=== PATIENT | male | born 1960 | race Caucasian/White ===

== ENCOUNTER 2023-02-11 17:45 | Inpatient (IN) | payer MEDICARE, MEDICAID ==
[2023-02-11] MEDS ORDERED: Aspirin 81 MG Tab.Chew ONE (17:53)
[2023-02-11] MEDS ORDERED: Aspirin 81 MG Tab.Chew PO ONE (17:53)
[2023-02-11] MEDS ORDERED: Acetaminophen 650 MG Supp RECTAL ONE (17:54)
[2023-02-11] MEDS ORDERED: Sodium Chloride 0.9% 1,000 ML IV ONE ×2 (17:55→22:54)
[2023-02-11] MEDS ORDERED: VANCOmycin 2 GM/400 ML 2 GM in Premix Bag 1 BAG IV ONE (18:20)
[2023-02-11 18:22] LABS: BASOPHILS ABSOLUTE AUTO 0.02 10^3/uL (0.00-0.10); BASOPHILS PERCENT AUTO 0.1 % (0.0-1.0); EOSINOPHILS ABSOLUTE AUTO 0.02 10^3/uL (0.10-0.30); EOSINOPHILS PERCENT AUTO 0.1 % (1.0-3.0); HEMATOCRIT 46.1 % (40.0-52.0); HEMOGLOBIN 15.5 g/dL (13.0-17.0); IMMATURE GRAN ABSOLUTE AUTO 0.07 10^3/uL (0.00-0.50); IMMATURE GRAN PERCENT AUTO 0.3 % (0.0-5.0); LYMPHOCYTES ABSOLUTE AUTO 0.38 10^3/uL (1.00-4.00); LYMPHOCYTES PERCENT AUTO 1.9 % (20.0-40.0); MEAN CORPUSCULAR HEMOGLOBIN 31.8 pg (27.0-31.0); MEAN CORPUSCULAR HGB CONC 33.6 g/dL (32.0-36.0); MEAN CORPUSCULAR VOLUME 94.7 fL (82.0-92.0); MEAN PLATELET VOLUME 9.3 fL (7.4-10.4); MONOCYTES ABSOLUTE AUTO 1.14 10^3/uL (0.10-0.80); MONOCYTES PERCENT AUTO 5.7 % (2.0-8.0); NEUTROPHILS ABSOLUTE AUTO 18.54 10^3/uL (2.50-7.00); NEUTROPHILS PERCENT AUTO 91.9 % (50.0-70.0); PLATELET COUNT,PLT 196 10^3/uL (150-400); RED BLOOD CELL COUNT 4.87 10^6/uL (4.50-6.00); RED CELL DISTRIBUTION WIDTH 12.7 % (11.5-14.5); WHITE BLOOD CELL COUNT,WBC 20.17 10^3/uL (5.00-10.00)
[2023-02-11] MEDS ORDERED: cefTRIAXone 2 GM Vial IVPUSH ONE (18:22)
[2023-02-11] MEDS ORDERED: Nitroglycerin 0.4 MG Tab.SL ONE (18:25)
[2023-02-11] MEDS ORDERED: Nitroglycerin 0.4 MG Tab.SL SL ONE (18:26)
[2023-02-11 18:39] LABS: ALANINE AMINOTRANSFERASE,ALT 43 U/L (14-63); ALBUMIN 3.68 g/dL (3.40-5.00); ALKALINE PHOSPHATASE 60 U/L (46-116); ANION GAP 16.5 mmol/L (5-15); ASPARTATE AMNIOTRANSFERASE,AST 40 U/L (15-37); BILIRUBIN TOTAL 0.6 mg/dL (0.2-1.0); BLOOD UREA NITROGEN,BUN 17 mg/dL (7-18); CALCIUM 8.6 mg/dL (8.7-10.3); CARBON DIOXIDE,CO2 24.7 mmol/L (21.0-32.0); CHLORIDE,CL 99 mmol/L (98-107); CREATININE 1.04 mg/dL (0.51-1.17); GLUCOSE RANDOM 138 mg/dL (70-140); POTASSIUM,K 4.2 mmol/L (3.5-5.1); PROTEIN TOTAL,TP 7.4 g/dL (6.4-8.2); SODIUM,NA 136 mmol/L (136-145)
[2023-02-11 18:41] LABS: ESTIMATED GFR 80 mL/min (>=60)
[2023-02-11 18:44] LABS: B-TYPE NATRIURETIC PEPTIDE,BNP 20 pg/mL (0-100)
[2023-02-11 18:46] LABS: APPEARANCE,URINE SLIGHTLY CLOUDY (CLEAR); BILIRUBIN,URINE NEGATIVE (NEGATIVE); COLOR,URINE YELLOW (YELLOW); GLUCOSE,URINE 500 mg/dL (NEGATIVE); KETONES,URINE NEGATIVE (NEGATIVE); LEUKOCYTE ESTERASE,URINE NEGATIVE (NEGATIVE); NITRITE,URINE NEGATIVE (NEGATIVE); OCCULT BLOOD,URINE TRACE-INTACT (NEGATIVE); PH,URINE 5.5 (5.0-9.0); PROTEIN,URINE NEGATIVE (NEGATIVE); UROBILINOGEN,URINE 0.2 E.U./dL (0.2-1.0)
[2023-02-11 18:49] LABS: BACTERIA,URINE RARE /HPF (NONE TO FEW); EPITHELIAL CELLS,URINE RARE /LPF; WBC,URINE 0-5 /HPF (0-5)
[2023-02-11] MEDS ORDERED: 50% Dextrose in Water 50 ML Syringe IVPUSH PRN (21:43)
[2023-02-11] MEDS ORDERED: Glucagon,Human Recombinant 1 MG Vial IM PRN (21:43)
[2023-02-11] MEDS: Acetaminophen 650 MG Supp RECTAL PRN (22:59)
[2023-02-12 01:15] LABS: INFLUENZA A NAA NEGATIVE (NEGATIVE); INFLUENZA B NAA NEGATIVE (NEGATIVE); RESPIRATORY SYNCYTIAL VIR NAA NEGATIVE (NEGATIVE)
[2023-02-12 01:16] LABS: CORONAVIRUS COVID-19 NAA NEGATIVE (NEGATIVE)
[2023-02-12] MEDS ORDERED: Sodium Chloride 0.9% 100 ML IV SCH (02:30)
[2023-02-12] MEDS: Acetaminophen 650 MG Supp RECTAL PRN (03:07)
[2023-02-12 07:29] LABS: BASOPHILS ABSOLUTE AUTO 0.03 10^3/uL (0.00-0.10); BASOPHILS PERCENT AUTO 0.2 % (0.0-1.0); HEMATOCRIT 46.3 % (40.0-52.0); HEMOGLOBIN 14.9 g/dL (13.0-17.0); IMMATURE GRAN ABSOLUTE AUTO 0.05 10^3/uL (0.00-0.50); IMMATURE GRAN PERCENT AUTO 0.3 % (0.0-5.0); LYMPHOCYTES ABSOLUTE AUTO 0.53 10^3/uL (1.00-4.00); LYMPHOCYTES PERCENT AUTO 3.5 % (20.0-40.0); MEAN CORPUSCULAR HEMOGLOBIN 31.4 pg (27.0-31.0); MEAN CORPUSCULAR HGB CONC 32.2 g/dL (32.0-36.0); MEAN CORPUSCULAR VOLUME 97.5 fL (82.0-92.0); MEAN PLATELET VOLUME 9.3 fL (7.4-10.4); MONOCYTES ABSOLUTE AUTO 0.54 10^3/uL (0.10-0.80); MONOCYTES PERCENT AUTO 3.6 % (2.0-8.0); NEUTROPHILS ABSOLUTE AUTO 13.82 10^3/uL (2.50-7.00); NEUTROPHILS PERCENT AUTO 92.4 % (50.0-70.0); PLATELET COUNT,PLT 193 10^3/uL (150-400); RED BLOOD CELL COUNT 4.75 10^6/uL (4.50-6.00); WHITE BLOOD CELL COUNT,WBC 14.97 10^3/uL (5.00-10.00)
[2023-02-12 07:46] LABS: ALBUMIN 3.11 g/dL (3.40-5.00); ANION GAP 12.7 mmol/L (5-15); BILIRUBIN TOTAL 0.5 mg/dL (0.2-1.0); CALCIUM 8.5 mg/dL (8.7-10.3); CARBON DIOXIDE,CO2 28.7 mmol/L (21.0-32.0); CREATININE 1.06 mg/dL (0.51-1.17); EST CRCL DRUG DOSING (CG) 77.27 mL/min; POTASSIUM,K 4.4 mmol/L (3.5-5.1)
[2023-02-12] MEDS: Insulin Lispro 100 Unit/ML 3 ML KwikPen SUBCUT SCH ×3 (08:15→17:46)
[2023-02-12] MEDS: Aspirin 81 MG Tab.EC PO SCH (08:33)
[2023-02-12] MEDS: Magnesium Oxide 500 MG Tab PO SCH ×2 (08:33→21:36)
[2023-02-12] MEDS: Gabapentin 300 MG Cap PO SCH ×3 (08:33→21:36)
[2023-02-12] MEDS: DULoxetine 30 MG Cap PO SCH ×2 (08:33→21:37)
[2023-02-12] MEDS: Multivitamins with Minerals/Iron/Folic Acid/Lycopene Tab PO SCH (08:33)
[2023-02-12] MEDS: Cholecalciferol (Vitamin D3) 25 MCG Tab PO SCH (08:34)
[2023-02-12] MEDS: Enoxaparin 40 MG/0.4 ML Syringe SUBCUT SCH (08:34)
[2023-02-12] MEDS: Omeprazole 20 MG Cap.CR PO SCH (08:34)
[2023-02-12] MEDS: Potassium Chloride 20 MEQ Tab.ER PO SCH (08:34)
[2023-02-12] MEDS: VANCOmycin 1 GM/200 ML 1 GM in Premix Bag 1 BAG IV SCH ×2 (08:51→21:21)
[2023-02-12] MEDS ORDERED: BENZTROPINE 1 MG PO SCH (09:00)
[2023-02-12] MEDS: Furosemide 40 MG Tab PO SCH ×2 (10:00→17:21)
[2023-02-12] MEDS: Acetaminophen 325 MG Tab PO PRN ×3 (10:11→21:35)
[2023-02-12] MEDS: Nystatin Topical Powder 15 GM Bottle TOP SCH ×2 (10:12→21:43)
[2023-02-12] MEDS: cefTRIAXone 2 GM Vial IVPUSH SCH (17:11)
[2023-02-12] MEDS: ARIPiprazole 5 MG Tab PO SCH (21:38)
[2023-02-13] MEDS: Acetaminophen 325 MG Tab PO PRN (02:17)
[2023-02-13] MEDS: Insulin Lispro 100 Unit/ML 3 ML KwikPen SUBCUT SCH ×3 (08:17→17:42)
[2023-02-13] MEDS: DULoxetine 30 MG Cap PO SCH ×2 (08:26→20:47)
[2023-02-13] MEDS: Cholecalciferol (Vitamin D3) 25 MCG Tab PO SCH (08:26)
[2023-02-13] MEDS: Gabapentin 300 MG Cap PO SCH ×3 (08:26→20:47)
[2023-02-13] MEDS: Aspirin 81 MG Tab.EC PO SCH (08:26)
[2023-02-13] MEDS: Multivitamins with Minerals/Iron/Folic Acid/Lycopene Tab PO SCH (08:26)
[2023-02-13] MEDS: Potassium Chloride 20 MEQ Tab.ER PO SCH (08:27)
[2023-02-13] MEDS: Omeprazole 20 MG Cap.CR PO SCH (08:27)
[2023-02-13] MEDS: Enoxaparin 40 MG/0.4 ML Syringe SUBCUT SCH (08:27)
[2023-02-13] MEDS: Magnesium Oxide 500 MG Tab PO SCH ×2 (08:27→20:47)
[2023-02-13] MEDS: Furosemide 40 MG Tab PO SCH ×2 (08:27→17:10)
[2023-02-13] MEDS: VANCOmycin 1 GM/200 ML 1 GM in Premix Bag 1 BAG IV SCH (08:56)
[2023-02-13] MEDS: Nystatin Topical Powder 15 GM Bottle TOP SCH ×2 (09:38→21:55)
[2023-02-13 11:32] LABS: BASOPHILS ABSOLUTE AUTO 0.01 10^3/uL (0.00-0.10); BASOPHILS PERCENT AUTO 0.2 % (0.0-1.0); EOSINOPHILS ABSOLUTE AUTO 0.19 10^3/uL (0.10-0.30); EOSINOPHILS PERCENT AUTO 3.2 % (1.0-3.0); HEMATOCRIT 43.7 % (40.0-52.0); IMMATURE GRAN ABSOLUTE AUTO 0.01 10^3/uL (0.00-0.50); IMMATURE GRAN PERCENT AUTO 0.2 % (0.0-5.0); LYMPHOCYTES ABSOLUTE AUTO 0.89 10^3/uL (1.00-4.00); LYMPHOCYTES PERCENT AUTO 14.8 % (20.0-40.0); MEAN CORPUSCULAR VOLUME 96.7 fL (82.0-92.0); MEAN PLATELET VOLUME 9.6 fL (7.4-10.4); MONOCYTES ABSOLUTE AUTO 0.55 10^3/uL (0.10-0.80); MONOCYTES PERCENT AUTO 9.2 % (2.0-8.0); NEUTROPHILS ABSOLUTE AUTO 4.36 10^3/uL (2.50-7.00); NEUTROPHILS PERCENT AUTO 72.4 % (50.0-70.0); PLATELET COUNT,PLT 162 10^3/uL (150-400); RED BLOOD CELL COUNT 4.52 10^6/uL (4.50-6.00); WHITE BLOOD CELL COUNT,WBC 6.01 10^3/uL (5.00-10.00)
[2023-02-13 11:48] LABS: ANION GAP 11.6 mmol/L (5-15); CALCIUM 8.7 mg/dL (8.7-10.3); CARBON DIOXIDE,CO2 26.4 mmol/L (21.0-32.0); CREATININE 0.89 mg/dL (0.51-1.17); EST CRCL DRUG DOSING (CG) 92.03 mL/min; MAGNESIUM 1.7 mg/dL (1.8-2.4)
[2023-02-13] MEDS ORDERED: Sodium Chloride 0.9% 100 ML IV SCH ×2 (13:15)
[2023-02-13] MEDS: cefTRIAXone 2 GM Vial IVPUSH SCH (18:04)
[2023-02-13] MEDS: ARIPiprazole 5 MG Tab PO SCH (20:47)
[2023-02-13] MEDS ORDERED: VANCOmycin 1.25 GM/250 ML 1.25 GM in Premix Bag 1 BAG IV SCH (21:00)
[2023-02-14] MEDS: Insulin Lispro 100 Unit/ML 3 ML KwikPen SUBCUT SCH ×3 (07:46→18:02)
[2023-02-14 07:54] LABS: BASOPHILS ABSOLUTE AUTO 0.03 10^3/uL (0.00-0.10); BASOPHILS PERCENT AUTO 0.5 % (0.0-1.0); EOSINOPHILS ABSOLUTE AUTO 0.24 10^3/uL (0.10-0.30); EOSINOPHILS PERCENT AUTO 4.1 % (1.0-3.0); IMMATURE GRAN ABSOLUTE AUTO 0.02 10^3/uL (0.00-0.50); IMMATURE GRAN PERCENT AUTO 0.3 % (0.0-5.0); LYMPHOCYTES ABSOLUTE AUTO 0.96 10^3/uL (1.00-4.00); LYMPHOCYTES PERCENT AUTO 16.6 % (20.0-40.0); MEAN CORPUSCULAR HEMOGLOBIN 31.3 pg (27.0-31.0); MEAN CORPUSCULAR HGB CONC 32.6 g/dL (32.0-36.0); MEAN PLATELET VOLUME 9.6 fL (7.4-10.4); MONOCYTES ABSOLUTE AUTO 0.64 10^3/uL (0.10-0.80); NEUTROPHILS ABSOLUTE AUTO 3.91 10^3/uL (2.50-7.00); NEUTROPHILS PERCENT AUTO 67.5 % (50.0-70.0); PLATELET COUNT,PLT 170 10^3/uL (150-400); RED BLOOD CELL COUNT 4.48 10^6/uL (4.50-6.00); RED CELL DISTRIBUTION WIDTH 12.8 % (11.5-14.5)
[2023-02-14 08:23] LABS: CALCIUM 8.7 mg/dL (8.7-10.3); CARBON DIOXIDE,CO2 25.8 mmol/L (21.0-32.0); CREATININE 0.91 mg/dL (0.51-1.17); EST CRCL DRUG DOSING (CG) 90.01 mL/min; MAGNESIUM 1.5 mg/dL (1.8-2.4); POTASSIUM,K 3.8 mmol/L (3.5-5.1)
[2023-02-14] MEDS: Gabapentin 300 MG Cap PO SCH ×3 (08:29→20:06)
[2023-02-14] MEDS: Aspirin 81 MG Tab.EC PO SCH (08:29)
[2023-02-14] MEDS: Magnesium Oxide 500 MG Tab PO SCH ×2 (08:29→20:06)
[2023-02-14] MEDS: Cholecalciferol (Vitamin D3) 25 MCG Tab PO SCH (08:29)
[2023-02-14] MEDS: Omeprazole 20 MG Cap.CR PO SCH (08:29)
[2023-02-14] MEDS: Potassium Chloride 20 MEQ Tab.ER PO SCH (08:29)
[2023-02-14] MEDS: DULoxetine 30 MG Cap PO SCH ×2 (08:29→20:06)
[2023-02-14] MEDS: Enoxaparin 40 MG/0.4 ML Syringe SUBCUT SCH (08:29)
[2023-02-14] MEDS: Multivitamins with Minerals/Iron/Folic Acid/Lycopene Tab PO SCH (08:29)
[2023-02-14] MEDS: Clindamycin HCl 150 MG Cap PO SCH ×3 (08:29→22:57)
[2023-02-14] MEDS: Furosemide 40 MG Tab PO SCH ×2 (08:33→17:17)
[2023-02-14] MEDS: Nystatin Topical Powder 15 GM Bottle TOP SCH ×2 (09:34→20:07)
[2023-02-14] MEDS: Menthol Lozenge PO PRN ×2 (14:33→15:55)
[2023-02-14] MEDS: cefTRIAXone 2 GM Vial IVPUSH SCH (17:03)
[2023-02-14] MEDS: ARIPiprazole 5 MG Tab PO SCH (20:06)
[2023-02-15] MEDS: Acetaminophen 325 MG Tab PO PRN (00:10)
[2023-02-15] MEDS: Insulin Lispro 100 Unit/ML 3 ML KwikPen SUBCUT SCH ×2 (08:26→12:08)
[2023-02-15] MEDS: Multivitamins with Minerals/Iron/Folic Acid/Lycopene Tab PO SCH (08:26)
[2023-02-15] MEDS: Magnesium Oxide 500 MG Tab PO SCH (08:26)
[2023-02-15] MEDS: Cholecalciferol (Vitamin D3) 25 MCG Tab PO SCH (08:26)
[2023-02-15] MEDS: Omeprazole 20 MG Cap.CR PO SCH (08:26)
[2023-02-15] MEDS: Aspirin 81 MG Tab.EC PO SCH (08:26)
[2023-02-15] MEDS: Clindamycin HCl 150 MG Cap PO SCH (08:26)
[2023-02-15] MEDS: Potassium Chloride 20 MEQ Tab.ER PO SCH (08:26)
[2023-02-15] MEDS: DULoxetine 30 MG Cap PO SCH (08:26)
[2023-02-15] MEDS: Furosemide 40 MG Tab PO SCH (08:27)
[2023-02-15] MEDS: Enoxaparin 40 MG/0.4 ML Syringe SUBCUT SCH (08:27)
[2023-02-15] MEDS: Gabapentin 300 MG Cap PO SCH ×2 (08:27→13:49)
[2023-02-15] MEDS ORDERED: Levofloxacin 500 MG Tab PO SCH (09:30)
[2023-02-15] MEDS: Nystatin Topical Powder 15 GM Bottle TOP SCH (09:40)
[2023-02-15 12:08] VITALS: BP 113/68; PULSE 82
== END 2023-02-15 14:05 | DRG 871 ==
LOC: KA.ED 17:45 → KA.MS 19:25
PROVIDERS: ADMIT Physician Assistant; ATTEND Family Medicine
DX: A41.9 Sepsis, unspecified organism (principal); A41.52 Sepsis due to Pseudomonas; G93.41 Metabolic encephalopathy; L03.116 Cellulitis of left lower limb; L03.115 Cellulitis of right lower limb; Z68.41 Body mass index [BMI] 40.0-44.9, adult; E66.01 Morbid (severe) obesity due to excess calories; E11.9 Type 2 diabetes mellitus without complications; F20.9 Schizophrenia, unspecified; Z66 Do not resuscitate; I11.0 Hypertensive heart disease with heart failure; I50.9 Heart failure, unspecified; I87.8 Other specified disorders of veins; G47.33 Obstructive sleep apnea (adult) (pediatric); K21.9 Gastro-esophageal reflux disease without esophagitis; N40.0 Benign prostatic hyperplasia without lower urinary tract symptoms; F41.9 Anxiety disorder, unspecified; F32.A Depression, unspecified; R65.20 Severe sepsis without septic shock; Z88.0 Allergy status to penicillin; Z99.81 Dependence on supplemental oxygen; Z79.82 Long term (current) use of aspirin; Z79.899 Other long term (current) drug therapy; Z87.891 Personal history of nicotine dependence; Z11.52 Encounter for screening for COVID-19
CPT/HCPCS: 0241U; 36415; 51702; 71045; 80048; 80053; 80202; 81001; 82947; 83605; 83735; 83880; 84484; 85025; 87040; 87070; 87075; 87086; 87186; 87205; 93005; 93010; 96365; 96375; 97110-GP; 97161-GP; 99223-GT; 99232-GT; 99233-GT; 99239-GT; 99284; 99285-25; A9270-GY; J0696; J1650; J3370; J3490; J7030; Q3014

== ENCOUNTER 2023-07-12 10:11 | Emergency (ER) | payer MEDICARE, MEDICAID ==
[2023-07-12 10:50] LABS: BASOPHILS ABSOLUTE AUTO 0.03 10^3/uL (0.00-0.10); BASOPHILS PERCENT AUTO 0.4 % (0.0-1.0); EOSINOPHILS ABSOLUTE AUTO 0.02 10^3/uL (0.10-0.30); EOSINOPHILS PERCENT AUTO 0.2 % (1.0-3.0); HEMATOCRIT 49.1 % (40.0-52.0); HEMOGLOBIN 16.2 g/dL (13.0-17.0); IMMATURE GRAN ABSOLUTE AUTO 0.01 10^3/uL (0.00-0.50); IMMATURE GRAN PERCENT AUTO 0.1 % (0.0-5.0); LYMPHOCYTES ABSOLUTE AUTO 0.77 10^3/uL (1.00-4.00); LYMPHOCYTES PERCENT AUTO 9.4 % (20.0-40.0); MEAN CORPUSCULAR HEMOGLOBIN 29.9 pg (27.0-31.0); MEAN CORPUSCULAR VOLUME 90.8 fL (82.0-92.0); MEAN PLATELET VOLUME 9.7 fL (7.4-10.4); MONOCYTES ABSOLUTE AUTO 0.45 10^3/uL (0.10-0.80); MONOCYTES PERCENT AUTO 5.5 % (2.0-8.0); NEUTROPHILS ABSOLUTE AUTO 6.93 10^3/uL (2.50-7.00); NEUTROPHILS PERCENT AUTO 84.4 % (50.0-70.0); PLATELET COUNT,PLT 248 10^3/uL (150-400); RED BLOOD CELL COUNT 5.41 10^6/uL (4.50-6.00); RED CELL DISTRIBUTION WIDTH 12.5 % (11.5-14.5); WHITE BLOOD CELL COUNT,WBC 8.21 10^3/uL (5.00-10.00)
[2023-07-12 11:06] LABS: ALBUMIN 3.98 g/dL (3.40-5.00); ANION GAP 13.7 mmol/L (5-15); BILIRUBIN TOTAL 0.5 mg/dL (0.2-1.0); C-REACTIVE PROTEIN 0.62 mg/dL (0.00-0.50); CALCIUM 9.3 mg/dL (8.7-10.3); CARBON DIOXIDE,CO2 30.7 mmol/L (21.0-32.0); CREATININE 0.94 mg/dL (0.51-1.17); EST CRCL DRUG DOSING (CG) 75.8 mL/min; POTASSIUM,K 4.4 mmol/L (3.5-5.1); PROTEIN TOTAL,TP 8.1 g/dL (6.4-8.2)
[2023-07-12] MEDS: Acetaminophen 500 MG Tab PO ONE (11:37)
== END 2023-07-12 12:12 ==
LOC: KA.ED 10:11
DX: M48.061 Spinal stenosis, lumbar region without neurogenic claudication (principal); I11.0 Hypertensive heart disease with heart failure; I50.9 Heart failure, unspecified; E78.00 Pure hypercholesterolemia, unspecified; E11.42 Type 2 diabetes mellitus with diabetic polyneuropathy; Z79.899 Other long term (current) drug therapy; Z86.718 Personal history of other venous thrombosis and embolism; Z79.84 Long term (current) use of oral hypoglycemic drugs; Z79.82 Long term (current) use of aspirin; Z88.0 Allergy status to penicillin; Z88.8 Allergy status to other drugs, medicaments and biological substances
CPT/HCPCS: 36415; 73501; 80053; 85025; 85379; 86140; 99284; A9270